=== PATIENT | female | born 1990 | race African-American/Black ===

== ENCOUNTER 2017-07-19 18:43 | Emergency (ER) | payer OTHER ==
[~2017-07-19] VITALS: Ht 165.1 cm; Wt 113.1 kg
[~2017-07-19 18:43] MED LIST: PREDNISONE20 MG PO; VENTOLIN HFA18 GM IH
[2017-07-19] MEDS ORDERED: MOTRIN600 MG PO (20:15)
[2017-07-19] MEDS ORDERED: ZYRTEC-D1 TABLE1 PO (20:15)
[2017-07-19] MEDS ORDERED: ZITHROMAX Z-PA250 MG PO (20:15)
[2017-07-19 20:22] VITALS: BP 150/88
== END 2017-07-19 20:23 | disposition home or self-care (01) ==
LOC: EME 18:43
DX: J01.10 Acute frontal sinusitis, unspecified (principal); F17.200 Nicotine dependence, unspecified, uncomplicated; J45.909 Unspecified asthma, uncomplicated; Z88.0 Allergy status to penicillin
CPT/HCPCS: 71020; 99281; 99284